=== PATIENT | female | born 1995 | race Caucasian/White ===

== ENCOUNTER 2018-03-18 20:29 | Emergency (ER) | payer BC ==
--- NOTE | 2018-03-18 21:10 | EDM.PDOC ---
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 Patient reports that her last menstrual period was on February 04. She states that she started spotting about 2 days ago. Reports today while she was urinating she experienced a heavy gush of blood. She then proceeded to continue to spot. She did take 2 units test at home which were both negative. She reports some brown mucousy-like discharge. She has a history of PCOS. She is primarily complaining of sharp pain to both sides of her abdomen that radiated down into her groin. She reports associated signs of weakness. She denies any lightheadedness, syncope or any dysuria. She reports that she frequently is constipated, last bowel movement today with is only a small bowel movement. She denies any recent fevers, cough or cold symptoms. She is not on any contraceptive medications. She is sexually active. Primary care provider lives in [place]. Left Abdominal Pain Score (Numeric/FACES): 5 - Related Data Allergies Allergy/AdvReac Type Severity Reaction Status Date / Time No Known Allergies Allergy Verified 03/18/18 20:42 Home Meds: Home Meds . 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 Denies: Fever Respiratory: Denies: Cough GI/Abdominal: Reports: Abdominal Pain (bilateral abdominal pain), Constipation : Reports: Discharge (reports brownish colored discharge ), Other (vaginal bleeding). Denies: Dysuria Neurological: Denies: Syncope ED EXAM, RENAL/ - Physical Exam Exam: See Below Exam Limited By: No Limitations General Appearance: Alert, WD/WN, No Apparent Distress Throat/Mouth: Normal Inspection, Normal Voice, No Airway Compromise Respiratory/Chest: No Respiratory Distress, Lungs Clear, Normal Breath Sounds Cardiovascular: Normal Peripheral Pulses, Regular Rate, Rhythm, No Murmur GI/Abdominal: Normal Bowel Sounds, Soft, Non-Tender Back Exam: Normal Inspection. No: CVA Tenderness (L), CVA Tenderness (R) Neurological: Alert, Oriented, Normal Cognition Psychiatric: Normal Mood, Flat Affect Skin Exam: Warm, Dry, Normal Color Course - Vital Signs Last Recorded V/S: Last Vital Signs Temp 97.7 F 03/18/18 22:48 Pulse 79 03/18/18 22:48 Resp 18 03/18/18 22:48 BP 122/74 03/18/18 22:48 Pulse Ox 96 03/18/18 22:48 - Orders/Labs/Meds Labs: Laboratory Tests 03/18/18 03/18/18 03/18/18 Range/Units 21:00 21:06 21:06 WBC 8.51 (3.98-10.04) K/mm3 RBC 5.23 H (3.98-5.22) M/mm3 Hgb 14.2 (11.2-15.7) gm/L Hct 42.5 (34.1-44.9) % MCV 81.3 (79.4-94.8) fl MCH 27.2 (25.6-32.2) pg MCHC 33.4 (32.2-35.5) g/dl RDW Std Deviation 42.9 (36.4-46.3) fL Plt Count 276 (182-369) K/mm3 MPV 9.4 (9.4-12.3) fl Neut % (Auto) 50.8 (34.0-71.1) % Lymph % (Auto) 35.0 (19.3-51.7) % [place] % (Auto) 7.8 (4.7-12.5) % Eos % (Auto) 5.4 (0.7-5.8) Baso % (Auto) 0.6 (0.1-1.2) % Neut # (Auto) 4.33 (1.56-6.13) K/mm3 Lymph # (Auto) 2.98 (1.18-3.74) K/mm3 [place] # (Auto) 0.66 H (0.24-0.36) K/mm3 Eos # (Auto) 0.46 H (0.04-0.36) K/mm3 Baso # (Auto) 0.05 (0.01-0.08) K/mm3 Sodium 140 (136-145) mEq/L Potassium 3.8 (3.5-5.1) mEq/L Chloride 103 (98-107) mEq/L Carbon Dioxide 29 (21-32) mEq/L Anion Gap 11.8 (5-15) BUN 15 (7-18) mg/dL Creatinine 1.0 (0.55-1.02) mg/dL Est Cr Clr Drug Dosing 86.54 mL/min Estimated GFR (MDRD) > 60 (>60) mL/min BUN/Creatinine Ratio 15.0 (14-18) Glucose 92 (74-106) mg/dL Calcium 8.8 (8.5-10.1) mg/dL Total Bilirubin 0.2 (0.2-1.0) mg/dL AST 17 (15-37) U/L ALT 25 (14-59) U/L Alkaline Phosphatase 47 (46-116) U/L Total Protein 7.2 (6.4-8.2) g/dl Albumin 3.9 (3.4-5.0) g/dl Globulin 3.3 gm/dL Albumin/Globulin Ratio 1.2 (1-2) HCG, Qual (NEGATIVE) Urine Color Yellow (Yellow) Urine Appearance Clear (Clear) Urine pH 7.0 (5.0-8.0) Ur Specific [place] 1.020 (1.005-1.030) Urine Protein Negative (Negative) Urine Glucose (UA) Negative (Negative) Urine Ketones Negative (Negative) Urine Occult Blood 2+ H (Negative) Urine Nitrite Negative (Negative) Urine Bilirubin Negative (Negative) Urine Urobilinogen 0.2 (0.2-1.0) Ur Leukocyte Esterase Negative (Negative) Urine RBC 0-5 (0-5) /hpf Urine WBC 0-5 (0-5) /hpf Ur Epithelial Cells 0-5 (0-5) /hpf Urine Bacteria Not seen (FEW) /hpf Urine Mucus Not seen (FEW) /hpf 07/20/18 Range/Units 21:06 WBC (3.98-10.04) K/mm3 RBC (3.98-5.22) M/mm3 Hgb (11.2-15.7) gm/L Hct (34.1-44.9) % MCV (79.4-94.8) fl MCH (25.6-32.2) pg MCHC (32.2-35.5) g/dl RDW Std Deviation (36.4-46.3) fL Plt Count (182-369) K/mm3 MPV (9.4-12.3) fl Neut % (Auto) (34.0-71.1) % Lymph % (Auto) (19.3-51.7) % [place] % (Auto) (4.7-12.5) % Eos % (Auto) (0.7-5.8) Baso % (Auto) (0.1-1.2) % Neut # (Auto) (1.56-6.13) K/mm3 Lymph # (Auto) (1.18-3.74) K/mm3 [place] # (Auto) (0.24-0.36) K/mm3 Eos # (Auto) (0.04-0.36) K/mm3 Baso # (Auto) (0.01-0.08) K/mm3 Sodium (136-145) mEq/L Potassium (3.5-5.1) mEq/L Chloride (98-107) mEq/L Carbon Dioxide (21-32) mEq/L Anion Gap (5-15) BUN (7-18) mg/dL Creatinine (0.55-1.02) mg/dL Est Cr Clr Drug Dosing mL/min Estimated GFR (MDRD) (>60) mL/min BUN/Creatinine Ratio (14-18) Glucose (74-106) mg/dL Calcium (8.5-10.1) mg/dL Total Bilirubin (0.2-1.0) mg/dL AST (15-37) U/L ALT (14-59) U/L Alkaline Phosphatase (46-116) U/L Total Protein (6.4-8.2) g/dl Albumin (3.4-5.0) g/dl Globulin gm/dL Albumin/Globulin Ratio (1-2) HCG, Qual Negative (NEGATIVE) Urine Color (Yellow) Urine Appearance (Clear) Urine pH (5.0-8.0) Ur Specific [place] (1.005-1.030) Urine Protein (Negative) Urine Glucose (UA) (Negative) Urine Ketones (Negative) Urine Occult Blood (Negative) Urine Nitrite (Negative) Urine Bilirubin (Negative) Urine Urobilinogen (0.2-1.0) Ur Leukocyte Esterase (Negative) Urine RBC (0-5) /hpf Urine WBC (0-5) /hpf Ur Epithelial Cells (0-5) /hpf Urine Bacteria (FEW) /hpf Urine Mucus (FEW) /hpf Meds: Medications Discontinued Medications Generic Name Dose Route Start Last Admin Trade Name Ashley PRN Reason Stop Dose Admin Ketorolac Tromethamine 60 mg 03/18/18 22:12 03/18/18 22:17 Toradol IM 03/18/18 22:13 60 mg ONETIME ONE Administration - Radiology Interpretation Free Text/Narrative:: KUB shows increased stool throughout the entire colon. - Re-Assessments/Exams Free Text/Narrative Re-Assessment/Exam: 03/18/18 22:40 Reviewed the labs and x-ray results with the patient. Her cramping and sharp pains appear to be a combination of her menstrual cycle and her constipation. Recommendations given. Discharge instructions as documented. Departure - Departure Time of Disposition: 22:40 Disposition: Home, Self-Care 01 Condition: Good Clinical Impression: Menstrual cramps, Constipation - Discharge Information *PRESCRIPTION DRUG MONITORING PROGRAM REVIEWED*: No *COPY OF PRESCRIPTION DRUG MONITORING REPORT IN PATIENT PETER: No Instructions: Constipation, Adult, [id number], Dysmenorrhea, [id number] Referrals: PCP,Not In Area [Primary Care Provider] - Forms: ED Department Discharge Additional Instructions: Recommend purchasing a bottle of magnesium citrate. This is available over-the- counter. Drink about half of the 300mls bottle over about one hour. If you do not have a large bowel movement from the magnesium citrate. may drink the second half about 8 hours later. recommend MiraLAX daily or every other day for normal bowel maintenance. make sure you are drinking plenty of fluids. [id number] Tylenol Motrin as needed for pain relief. Follow-up with your primary care provider as needed. Please return to the ER if your symptoms change or worsen.
[2018-03-18] MEDS ORDERED: Ketorolac 60 MG/2 ML SDV IM ONE (22:12)
--- NOTE | 2018-03-19 18:32 | CR ---
Abdomen: Supine view of the abdomen was obtained. Comparison: No previous study. Bowel gas pattern is normal. No abnormal calcifications or soft tissue abnormality is seen. Bony structures are unremarkable. Impression: 1. Unremarkable supine abdominal x-ray. Diagnostic code #1
== END 2018-03-18 22:50 | disposition home or self-care (01) ==
LOC: JD.ED 20:29
DX: K59.00 Constipation, unspecified (principal); R25.2 Cramp and spasm; F17.210 Nicotine dependence, cigarettes, uncomplicated
CPT/HCPCS: 36415; 74018; 80053; 81001; 84703; 85025; 96372; 99284; J1885